=== PATIENT | female | born 1990 | race Native Hawaiian/Other Pacific Islander ===

== ENCOUNTER 2022-09-14 16:04 | Outpatient (CLI) | payer MEDICAID, SELFPAY ==
--- NOTE | ~2022-09-14 | US_ITS ---
EXAMINATION: US OB <= 14 weeks fetus DATE: 09/14/2022 16:43 INDICATION: of uncertain dates TECHNIQUE: Real-time pelvic transabdominal and transvaginal ultrasound was performed. COMPARISON: None. FINDINGS: The uterus measures 11.1 x 6.8 x 7.7 cm. There is an intrauterine gestational sac. A yolk s ac is identified. heart motion is identified measuring 178 beats per minute (bpm) by M-mode Dop pler. The crown rump length measures 2.3 cm, which correlates with an estimated gestational age of 9 weeks and 0 day(s) (+/-) 4 day(s). The right ovary is not visualized however no right adnexal abnormality is seen. The left ovary measur es 4.7 x 2.6 x 2.8 cm. There is normal vascular flow in the left ovary. There is no free fluid in the pelvis. IMPRESSION: 1. Live intrauterine with an estimated gestational age of 9 weeks and 0 day(s) (+/-) 4 day( s) and an estimated delivery date of 04/19/2023. Reviewed, dictated and finalized at location B. IMPRESSION: 1. Live intrauterine with an estimated gestational age of 9 weeks and 0 day(s) (+/-) 4 day(s) and an estimated delivery date of 04/19/2023.
== END 2022-09-14 16:05 | disposition home or self-care (01) ==
PROVIDERS: PCP Emergency Medicine; Visit Provider Obstetrics & Gynecology Gynecology
DX: Z36.87 Encounter for antenatal screening for uncertain dates (principal); Z3A.09 9 weeks gestation of pregnancy
CPT/HCPCS: 76801

== ENCOUNTER 2022-11-19 15:30 | Outpatient (CLI) | payer OTHER, SELFPAY ==
--- NOTE | ~2022-11-19 | US_ITS ---
EXAMINATION: US OB /maternal detail DATE: 11/19/2022 16:26 INDICATION: anatomic survey. TECHNIQUE: Real-time ultrasound of the pelvis was performed. COMPARISON: Ultrasound 09/14/2022 FINDINGS: There is a single living fetus in vertex presentation. The placenta is anterior. heart rate is 148 beats per minute (bpm). The amniotic fluid volume is subjectively normal. The following biometric data were obtained: Biparietal diameter (BPD): 4.3 cm; head circumference (HC): 16.2 cm; abdominal circumference (AC): 14 .3 cm; femur length (FL): 3.1 cm. These measurements are concordant. Estimated weight is 295 g +/- 44 g, which correlates with the 92nd percentile when 04/18/23 is us ed as estimated date of delivery. As single measurements, these parameters are each equal to the following estimated gestational ages: BPD: 19 weeks 0 days. HC: 19 weeks 0 days. AC: 19 weeks 4 days. FL: 19 weeks 4 days. estimated gestational age based solely on measurements from this exam is 19 weeks 2 days +/- 1 weeks 2 days. The cerebral ventricles, cerebellum, cisterna magna, nuchal fold, and visualized portions of the spin e are normal. The heart, bladder, and umbilical cord vessel number are not well visualized. The diaph ragm, stomach, and kidneys are normal. The cord insertion is normal. IMPRESSION: 1. Single living fetus in vertex presentation. 2. Large for gestational age. Estimated weight is 295 g +/- 44 g, which correlates with the 92 nd percentile when 04/18/23 is used as estimated date of delivery. Note that estimated date of delivery based on the first ultrasound on 09/14/2022 would be 04/19/2023. 3. heart, bladder, and umbilical cord vessel number not well visualized. Reviewed, dictated and finalized at location A. IMPRESSION: 1. Single living fetus in vertex presentation. 2. Large for gestational age. Estimated weight is 295 g +/- 44 g, which correlates with the 92nd percentile when 04/18/23 is used as estimated date of de livery. Note that estimated date of delivery based on the first ultrasound on would be 04/19/2023. 3. heart, bladder, and umbilical cord vessel number not well visualized.
== END 2022-11-19 15:31 | disposition home or self-care (01) ==
PROVIDERS: PCP Emergency Medicine; Visit Provider Advanced Practice Midwife
DX: Z36.9 Encounter for antenatal screening, unspecified (principal); Z3A.19 19 weeks gestation of pregnancy
CPT/HCPCS: 76805

== ENCOUNTER 2023-04-08 13:55 | Outpatient (RCR) | payer OTHER, SELFPAY ==
[2023-04-08 14:30] VITALS: BP 125/81; PULSE 92
== END 2023-07-07 23:59 | disposition home or self-care (01) ==
LOC: ANHOBOP 13:55
PROVIDERS: Visit Provider Obstetrics & Gynecology Gynecology
DX: O24.419 Gestational diabetes mellitus in pregnancy, unspecified control (principal); Z3A.38 38 weeks gestation of pregnancy
CPT/HCPCS: 59025

== ENCOUNTER 2023-04-10 15:46 | Inpatient (IN) | payer OTHER, SELFPAY ==
[2023-04-10] VITALS (12 sets, daily range): BP systolic 115–133; BP diastolic 62–90; PULSE 84–105; TEMP 36.3–37.1; BMI 33.0
[2023-04-10 16:26] LABS: Basophils Percent Auto 0.3 % (0.2-1.2); Eosinophils Absolute Auto 0.1 K/mm3 (0-0.3); Eosinophils Percent Auto 0.6 % (0-4.4); Hematocrit 34.6 % (37.0-47.0); Immature Granulocyte Absolute 0.05 K/mm3 (0.00-0.031); Immature Granulocyte Percent A 0.5 % (0-0.5); Lymphocytes Absolute Auto 2.27 K/mm3 (0.9-3.2); Mean Corpuscular HGB Conc 31.8 g/dl (32-36); Mean Corpuscular Hemoglobin 28.2 pg (26-34); Mean Corpuscular Volume 88.7 fl (80-100); Mean Platelet Volume 11.4 fl (7.4-10.4); Monocytes Absolute Auto 0.5 K/mm3 (0.1-0.6); Monocytes Percent Auto 5.1 % (2.6-8.5); Neutrophils Absolute Auto 7.4 K/mm3 (1.3-6.7); Neutrophils Percent Auto 71.5 % (45.5-73.1); Platelet Count Result 201 k/mm3 (150-375); Red Cell Distribution Width 14.2 % (11.5-14.5); White Blood Count 10.3 K/mm3 (4.5-10.0)
[2023-04-10] MEDS: miSOPROStol 25 MCG TABLET BY MOUTH (16:46)
[2023-04-10 16:52] LABS: Glucose Point of Care 78 mg/dl (65-105)
[2023-04-10] MEDS: INSULIN ASPART (*BKC) 100 UNITS/ML 10 UNITS SUB-Q (17:34)
[2023-04-10 18:54] LABS: Glucose Point of Care 111 mg/dl (65-105)
[2023-04-10] MEDS: INSULIN HUMAN NPH (*BKC) 100 UNITS/ML 66 UNITS SUB-Q (21:10)
[2023-04-10] MEDS: LACTATED RINGERS 1,000 ML 125 ML IV CONT (21:14)
[2023-04-10 21:16] LABS: Glucose Point of Care 89 mg/dl (65-105)
[2023-04-10] MEDS: miSOPROStol 25 MCG TABLET 50 MCG BY MOUTH (21:16)
[2023-04-11] VITALS (130 sets, daily range): BP systolic 94–146; BP diastolic 53–97; PULSE 73–127; RESP 18; TEMP 36.1–37.2; O2SAT 97–100
[2023-04-11] MEDS: miSOPROStol 25 MCG TABLET 50 MCG BY MOUTH (01:52)
[2023-04-11] MEDS: LACTATED RINGERS 1,000 ML 125 ML IV CONT ×3 (01:53→09:57)
[2023-04-11 02:07] LABS: Glucose Point of Care 73 mg/dl (65-105)
[2023-04-11 02:07] LABS: Glucose Point of Care 62 mg/dl (65-105)
[2023-04-11 05:49] LABS: Glucose Point of Care 96 mg/dl (65-105)
[2023-04-11] MEDS: OXYTOCIN 30 UNITS/NS 500 ML 30 UNITS/500 ML BAG 6 UNITS IV CONT (06:34)
--- NOTE | 2023-04-11 06:50 | WPDANESEPP ---
Anes - Eval Pre Procedure Procedure: labor epidural Date/Time: 04/11/23 06:50 Surgeon: tayla Preop Diagnosis: pain during labor Pre Op Diagnosis: IOL Patient Data Age: 32 Gender: F Height: 1.57 m Weight: 82 kg Last Vital Signs Temp 36.4 C L 04/11/23 04:51 Pulse 80 04/11/23 06:00 BP 137/84 04/11/23 06:00 O2 Del Method Room Air 04/10/23 16:06 Allergies Allergy/AdvReac Type Severity Reaction Status Date / Time Latex, Natural Rubber Allergy Rash Verified 03/20/23 15:39 nickel Allergy Itching Verified 03/20/23 15:39 Penicillins Allergy Swelling Verified 03/20/23 15:39 PRESERVATIVES Allergy Unknown Itching Uncoded 03/20/23 15:39 Home Medications Medication Instructions Recorded Confirmed Type aspirin 81 mg capsule 81 mg PO DAILY 03/20/23 04/10/23 History ergocalciferol (vitamin D2) 1,250 1,250 mcg PO WEEKLY 03/20/23 03/20/23 History mcg (50,000 unit) capsule (Vitamin D2) insulin NPH isoph U-100 human 100 66 unit subcut HS 03/20/23 03/20/23 History unit/mL subcutaneous cartridge insulin lispro 100 unit/mL 10 unit subcut QACDINNER 03/20/23 04/10/23 History subcutaneous pen vits no.126-ferrous fum 1 tablet PO DAILY 03/20/23 04/10/23 History 28 mg iron-folic acid 800 mcg tablet (Classic ) insulin lispro 100 unit/mL 6 unit subcut QACLUNCH 04/10/23 04/10/23 History subcutaneous cartridge Laboratory Tests 04/10/23 04/10/23 04/10/23 16:20 16:48 18:46 WBC 10.3 H K/mm3 (4.5-10.0) RBC 3.90 L M/mm3 (4.2-5.4) Hgb 11.0 L g/dL (12.0-15.0) Hct 34.6 L % (37.0-47.0) MCV 88.7 fl (80-100) MCH 28.2 pg (26-34) MCHC 31.8 L g/dl (32-36) RDW 14.2 % (11.5-14.5) Plt Count 201 k/mm3 (150-375) MPV 11.4 H fl (7.4-10.4) Immature Gran % (Auto) 0.5 % (0-0.5) Neut % (Auto) 71.5 % (45.5-73.1) Lymph % (Auto) 22.0 % (18.3-44.2) [place] % (Auto) 5.1 % (2.6-8.5) Eos % (Auto) 0.6 % (0-4.4) Baso % (Auto) 0.3 % (0.2-1.2) Lymph # (Auto) 2.27 K/mm3 (0.9-3.2) [place] # (Auto) 0.5 K/mm3 (0.1-0.6) Eos # (Auto) 0.1 K/mm3 (0-0.3) Baso # (Auto) 0.0 K/mm3 (0.0-0.1) Abs Immat Gran (auto) 0.05 H K/mm3 (0.00-0.031) Absolute Neuts (auto) 7.4 H K/mm3 (1.3-6.7) Absolute Nucleated RBC 0.0 K/mm3 (0.0-0.012) Nucleated RBC % 0.0 % (0.0-0.2) POC Capillary Glucose 78 mg/dl 111 H mg/dl (65-105) (65-105) RPR Pending Blood Type O Positive Antibody Screen Negative 04/10/23 04/11/23 04/11/23 21:09 01:45 02:03 WBC RBC Hgb Hct MCV MCH MCHC RDW Plt Count MPV Immature Gran % (Auto) Neut % (Auto) Lymph % (Auto) [place] % (Auto) Eos % (Auto) Baso % (Auto) Lymph # (Auto) [place] # (Auto) Eos # (Auto) Baso # (Auto) Abs Immat Gran (auto) Absolute Neuts (auto) Absolute Nucleated RBC Nucleated RBC % POC Capillary Glucose 89 mg/dl 62 L mg/dl 73 mg/dl (65-105) (65-105) (65-105) RPR Blood Type Antibody Screen 04/11/23 05:42 WBC RBC Hgb Hct MCV MCH MCHC RDW Plt Count MPV Immature Gran % (Auto) Neut % (Auto) Lymph % (Auto) [place] % (Auto) Eos % (Auto) Baso % (Auto) Lymph # (Auto) [place] # (Auto) Eos # (Auto) Baso # (Auto) Abs Immat Gran (auto) Absolute Neuts (auto) Absolute Nucleated RBC Nucleated RBC
--- NOTE | 2023-04-11 08:48 | WPDOBADMIT ---
Obstetrics - Admit Note Admission Note: record reviewed. No pertinent additions to the history and/or any subsequent changes in the physical findings that are not consistent with the expected course of the were found. Additions to the history and/or subsequent changes in the physical findings follow. Here at 39 weeks for medical induction of labor secondary to gestational diabetes insulin requiring. cervix is 3/50/-2 AROM with clear fluid. Patient getting uncomfortable with her contractions. Patient plans epidural. heart tones are reactive. She has had some random decelerations but nothing repetitive.
[2023-04-11 09:11] LABS: Glucose Point of Care 77 mg/dl (65-105)
[2023-04-11 13:27] LABS: Glucose Point of Care 73 mg/dl (65-105)
[2023-04-11 14:18] LABS: Rapid Plasma Reagin Non-Reactive (NonReactive)
--- NOTE | 2023-04-11 15:02 | PM.OBPRVD ---
OB - Vaginal Delivery Note Procedure Delivery date: 04/11/23 Events: Gestational Diabetes (GDMA2) Induction method: AROM, Per Misoprostol Protocol and Per Pitocin Protocol Delivery monitor: External FHT and External Uterine Route of delivery: Episiotomy description: None Laceration Description: Perineal - 2nd Degree and Labial (superficial B outer labia) Delivery repair: vicryl (3-0) Specimen: No Quantitative Blood Loss (ml): 125 Anesthesia type: Epidural Disposition: Floor Complications: No immediate complications Baby Date of : 04/11/23 Weeks of gestation at delivery: 39 gender: Female Weight (pounds): 6 Weight (ounces): 12 presentation: vertex position: Right Occiput Anterior Placenta delivery description: Spontaneous Cord Vessel Description: 3 Vessels and Delayed Cord Clamping score one minute: 9 score five minutes: 9
[2023-04-11] MEDS: OXYTOCIN 30 UNITS/NS 500 ML 30 UNITS/500 ML BAG 125 UNITS IV CONT (15:30)
[2023-04-11] MEDS: BENZOCAINE 20% AER SPR (*SP) 56 GM CAN 1 SPRAY TOPICAL (18:02)
[2023-04-11] MEDS: WITCH HAZEL 40 PADS 1 PAD TOPICAL (18:02)
[2023-04-11] MEDS: DOCUSATE SODIUM 100 MG CAPSULE PO (18:02)
[2023-04-11] MEDS: IBUPROFEN 600 MG TABLET PO (20:44)
--- NOTE | 2023-04-11 20:57 | OBPPTRN ---
Patient transferred to post room #292 via wheelchair, baby girl in crib at moms side. Support person present. Oriented to unit, room, information board, rooming in, admission packet and security measures. Patient verbalizes understanding.
[2023-04-12 05:21] VITALS: BP 120/68; PULSE 102; RESP 18; TEMP 36.4; O2SAT 100
[2023-04-12 05:31] LABS: Hematocrit 35.3 % (37.0-47.0); Hemoglobin 10.1 g/dL (12.0-15.0)
[2023-04-12 07:30] VITALS: BP 122/82; PULSE 103; RESP 16; TEMP 37.2; O2SAT 99
[2023-04-12 08:00] VITALS: PULSE 103; RESP 16; O2SAT 99
[2023-04-12] MEDS: MULTIVIT/MIN/PREN/FOL AC/IRON TABLET 1 TAB PO (09:38)
[2023-04-12] MEDS: IBUPROFEN 600 MG TABLET PO ×2 (09:39→20:05)
[2023-04-12] MEDS: DOCUSATE SODIUM 100 MG CAPSULE PO (09:39)
--- NOTE | 2023-04-12 10:45 | P.PNOB_ITS ---
OB - PN: Subj Subjective Date/time seen: 04/12/23 10:45 Patient comments: no complaints and pain well controlled baby status: doing well OB - PN: Obj Data Labs 04/12/23 04:51 Labs: Laboratory Results - last 24 hr 04/10/23 04/11/23 04/12/23 16:20 13:25 04:51 Hgb 10.1 L Hct 35.3 L POC Capillary Glucose 73 RPR Non-reactive OB - PN A/P Plan day: 1 Plan: routine care Time Spent With Patient Time: Total time spent is greater than 50% in coordination of care (as documented) at patient's floor/unit and/or counseling patient: Exam 2 : Bimanual exam- vagina & uterus: other (Uterus firm, nt @U)
[2023-04-12 12:23] VITALS: BP 124/79; PULSE 119; RESP 16; TEMP 37.1; O2SAT 98
--- NOTE | 2023-04-12 13:23 | WPDANLDPN2 ---
Anes-Prog Note L&D Date/Time: 04/12/23 13:23 Comfortable throughout: labor and delivery Neuraxial method: epidural Epidural/Spinal procedure site: clean & non-tender Neuro status: Neuro function grossly intact. Cardiovascular status: normal Respiratory status: normal Airway patency: baseline Mental status: baseline Post-Op hydration status: normal Vital Signs: Last Vital Signs Temp 98.8 F 04/12/23 12:23 Pulse 119 H 04/12/23 12:23 Resp 16 04/12/23 12:23 BP 124/79 04/12/23 12:23 Pulse Ox 98 04/12/23 12:23 O2 Del Method Room Air 04/12/23 08:00 Pain score (VAS): 0/10 I/O: Intake & Output 04/11/23 04/12/23 04/12/23 23:59 07:59 15:59 Output Total 300 Balance -300 Post-procedural complaints: none Patient feedback: Patient satisfied with anesthetic care.
--- NOTE | 2023-04-12 15:21 | PC.NURSE ---
[phone] Introductions were made to father of the baby and we reviewed the feeding history. has last had a bottle at 0845. Resources provided for inpatient and outpatient services with the feeding sheet, mom/baby guide and name written on the communication board. Father of baby was encouraged to call for assistance around 1100 to practice waking to breastfeed. Father voiced understanding of information and will call if there is a request for assistance. Reported to the Primary RN. [phone] RN was requested to the room for assistance. Introductions were made to mother, then consulted with patient to assess needs related to . Mother led the conversation with her?plans to feed?her , concerns about around family that is coming up to visit, the?experience so far of bottle feeding and pumping without practicing . RN encouraged understanding of the benefits of skin to skin (demonstrating unwrapping and placing upright on her chest), stimulating with massage touch, changing positions to encourage wakefulness, how to watch for early feeding cues, responsive feeding, feeding on demand (aiming for 8-12 times in 24 hours, about every 2-3 hours), milk production, building/maintaining a milk supply, duration of feeding, signs of adequate intake/output and how to record on the feeding sheet. Mother works well with her with encouragement and education, although tense, she is willing to learn. Reviewed positioning and ear, shoulder, hip alignment, supporting the breast to facilitate a deep latch, asymmetrical latch (off-center), leading with the chin with a big, open, wide gape and body close to mother. latched to the left, then right breast in football position. On the left breast infant sucks, stops and holds breast in the mouth. We attempted this practice for about 10 minutes, and infant would latch, suck, stop, and hold. Infant repeated the same response on the the right breast, however; one latch resulted in 3 simultaneous sucks with possibly 1 swallow, then infant stopped and held the nipple in her mouth. Education given to the mother of how to visualize the suckling (with good rocking jaw motion), swallows (dropping of the lower jaw) and how to listen for drinking at the breast (the ka sound). Patient's sister-in -law Nadja is present through some of this consult. She is very supportive as she has breastfed two of her children for over 1 year. Encouraged parents to use paced bottle feeding and pump consistently if infant is not latching of maintaining latch. Reviewed comfort measures of healing with a warm, wet washcloth to rinse breast, then leave open to air-dry, good handwashing when or touching the breast/nipples to prevent infection. Mother voiced understanding of skin to skin, stimulating with massage touch, responsive feedings, hand expressed colostrum (none expressed), talking to to encourage if it has been 2 -2.5 hours since the start of the last , to call if does not latch, or if there is discomfort with . Resources used for education were facilitated with the visual educational handouts, tool, mom and baby guide and reinforcement needed. Inpatient/outpatient resources provided with feeding sheet, name written on the communication board, and the mom/baby guide. Parents voiced understanding of information, calling for assistance with , waking infant or other concerns. Reported to the Primary RN.
[2023-04-12 20:05] VITALS: BP 140/85; PULSE 117; RESP 18; TEMP 36.8; O2SAT 97
[2023-04-12] MEDS: ACETAMINOPHEN 325 MG TABLET 650 MG PO (20:05)
[2023-04-12] MEDS: SIMETHICONE 80 MG TAB.CHEW PO (20:05)
--- NOTE | 2023-04-13 06:51 | PM.OBDSVD ---
DS: Admitting Diagnosis Discharge Date 04/13/23 <Julieth Gaviria MD - Last Filed: 04/13/23 08:03> Admitting Diagnosis IUP 39 wks GDMA2 <Barbara Saunders MD - Last Filed: 04/18/23 12:05> DS: Discharge Diagnosis Discharge Diagnosis (1) (normal spontaneous vaginal delivery): Code(s): O80 - Encounter for full-term uncomplicated delivery <Barbara Saunders MD - Last Filed: 04/18/23 12:05> Status: Acute <Barbara Saunders MD - Last Filed: 04/18/23 12:05> OB - DS: Summary OB Procedures : NST and Ultrasound <Barbara Saunders MD - Last Filed: 04/18/23 12:05> OB Procedures Intrapartum: Spontaneous Vag Delivery <Barbara Saunders MD - Last Filed: 04/18/23 12:05> OB Procedures: : None <Barbara Saunders MD - Last Filed: 04/18/23 12:05> Peripartum Data Infant Delivery Method: Natural Vaginal <Barbara Saunders MD - Last Filed: 04/18/23 12:05> Laceration Description: Perineal - 2nd Degree and Labial (superficial B outer labia) <Barbara Saunders MD - Last Filed: 04/18/23 12:05> Episiotomy description: None <Barbara Saunders MD - Last Filed: 04/18/23 12:05> complications: none <Barbara Saunders MD - Last Filed: 04/18/23 12:05> 1: Gender: Female <Julieth Gaviria MD - Last Filed: 04/13/23 08:03> Disposition of : home <Julieth Gaviria MD - Last Filed: 04/13/23 08:03> Status at Discharge Functional status at discharge: independent ambulation <Barbara Saunders MD - Last Filed: 04/18/23 12:05> Overall status at discharge: patient is progressing back to baseline <Barbara Saunders MD - Last Filed: 04/18/23 12:05> Time Spent with Patient Time attestation: Total time spent providing and/or coordinating discharge services: <Barbara Saunders MD - Last Filed: 04/18/23 12:05> Exam Const: General: cooperative, healthy appearing, comfortable and no acute distress <Julieth Gaviria MD - Last Filed: 04/13/23 08:03> Orientation/consciousness: patient oriented x3 <Julieth Gaviria MD - Last Filed: 04/13/23 08:03> Resp: Effort & Inspection: normal respiratory effort <Julieth Gaviria MD - Last Filed: 04/13/23 08:03> Auscultation: clear to auscultation bilaterally <Julieth Gaviria MD - Last Filed: 04/13/23 08:03> Cardio: Rate: regular rate <Julieth Gaviria MD - Last Filed: 04/13/23 08:03> GI: Inspection: non-distended <Julieth Gaviria MD - Last Filed: 04/13/23 08:03> GI Palp: No abdominal tenderness and Yes Soft to palpation <Julieth Gaviria MD - Last Filed: 04/13/23 08:03> Auscultation: normal bowel sounds <Julieth Gaviria MD - Last Filed: 04/13/23 08:03> : Other: fundus firm <Julieth Gaviria MD - Last Filed: 04/13/23 08:03> Skin: General skin exam: normal color <Julieth Gaviira MD - Last Filed: 04/13/23 08:03> Neuro: General: patient oriented x3 <Julieth Gaviria MD - Last Filed: 04/13/23 08:03> Extrem: General: normal to inspection <Julieth Gaviria MD - Last Filed: 04/13/23 08:03> Psych: Appearance: grossly normal <Julieth Gaviria MD - Last Filed: 04/13/23 08:03> Affect: normal affect <Julieth Gaviria MD - Last Filed: 04/13/23 08:03> Attitude: cooperative <Julieth Gaviria MD - Last Filed: 04/13/23 08:03> DS: Data Data Completed and Pending Labs on day of discharge: Labs from last 24 hours 04/11/23 04/11/23 04/11/23 13:25 09:04 05:42 WBC RBC Hgb Hct MCV MCH MCHC RDW Plt Count MPV Immature Gran % (Auto) Neut % (Auto) Lymph % (Auto) [place] % (Auto) Eos % (Auto) Baso % (Auto) Lymph # (Auto) [place] # (Auto) Eos # (Auto) Baso # (Auto) Abs Immat Gran (auto) Absolute Neuts (auto) Absolute Nucleated RBC Nucleated RBC % POC Capillary Glucose 73 77 96 RPR Bl
[2023-04-13] MEDS: MULTIVIT/MIN/PREN/FOL AC/IRON TABLET 1 TAB PO (10:39)
[2023-04-13] MEDS: IBUPROFEN 600 MG TABLET PO (10:39)
[2023-04-13] MEDS: DOCUSATE SODIUM 100 MG CAPSULE PO (10:39)
[2023-04-13] MEDS: SIMETHICONE 80 MG TAB.CHEW PO (10:39)
[2023-04-13 10:40] VITALS: BP 122/80; PULSE 110; RESP 18; TEMP 36.8; O2SAT 97
[2023-04-13] MEDS: MEASLES,MUMPS,RUBELLA VACCINE 0.5 ML VIAL SUB-Q (10:41)
[2023-04-15 10:26] VITALS: BP 125/80; PULSE 100; RESP 18; TEMP 36.7; O2SAT 100
== END 2023-04-13 12:52 | disposition home or self-care (01) | DRG 560 ==
LOC: ANHLDR 04-11 15:06 → ANHOB2 04-13 07:43 → ANHLDR 04-16 09:17 → ANHOB2 04-16 09:17
PROVIDERS: Admitting Provider Obstetrics & Gynecology Gynecology; Visit Provider Obstetrics & Gynecology
DX: O24.424 Gestational diabetes mellitus in childbirth, insulin controlled (principal); O70.1 Second degree perineal laceration during delivery; Z3A.39 39 weeks gestation of pregnancy; Z37.0 Single live birth
CPT/HCPCS: 36415; 82948; 85014; 85018; 85025; 86592; 86850; 86900; 86901; 90710; A9270; J1815; J2590; J2795; J7120

== ENCOUNTER 2023-05-02 10:20 | Day surgery (SDC) | payer OTHER, SELFPAY ==
[2023-05-02] VITALS (40 sets, daily range): BP systolic 104–133; BP diastolic 56–95; PULSE 96–138; RESP 11–32; TEMP 36.3–37.7; O2SAT 96–100
--- NOTE | ~2023-05-02 | CT_ITS ---
EXAMINATION: CT abdomen pelvis w con DATE: 05/02/2023 14:07 INDICATION: Low abdominal pain and cramping. 3 weeks . TECHNIQUE: Computed tomography (CT) of the abdomen and pelvis was performed with 100 mL Omnipaque 350 intravenous contrast. Automated exposure control and iterative reconstruction technique were employe d. The dose-length product was 480.34 mGy-cm. COMPARISON: CT abdomen and pelvis 01/28/2011 FINDINGS: The visualized portions of the lung bases are clear without pneumonia or pleural effusion. The heart size is normal. No pericardial effusion. The liver, spleen, gallbladder, pancreas, adrenal glands, and kidneys are normal. There is an appendicolith in the appendix which is dilated to 13 mm a nd fluid-filled with surrounding fat stranding, consistent with appendicitis. There are no pathologic ally enlarged lymph nodes. There is physiologic fluid in the pelvis. The endometrial complex measures 7 mm in thickness, which is normal. There is mild lumbar spondylosis. IMPRESSION: 1. Acute appendicitis. Reviewed, dictated and finalized at location E. ERING MACHINE OPERATOR IMPRESSION: 1. Acute appendicitis.
[2023-05-02 13:19] LABS: Basophils Percent Auto 0.1 % (0.2-1.2); Eosinophils Percent Auto 0.2 % (0-4.4); Hematocrit 39.5 % (37.0-47.0); Hemoglobin 12.3 g/dL (12.0-15.0); Immature Granulocyte Absolute 0.04 K/mm3 (0.00-0.031); Immature Granulocyte Percent A 0.3 % (0-0.5); Lymphocytes Absolute Auto 1.27 K/mm3 (0.9-3.2); Lymphocytes Percent Auto 10.6 % (18.3-44.2); Mean Corpuscular HGB Conc 31.1 g/dl (32-36); Mean Corpuscular Hemoglobin 27.8 pg (26-34); Mean Corpuscular Volume 89.2 fl (80-100); Mean Platelet Volume 10.6 fl (7.4-10.4); Monocytes Absolute Auto 0.5 K/mm3 (0.1-0.6); Monocytes Percent Auto 4.5 % (2.6-8.5); Neutrophils Absolute Auto 10.1 K/mm3 (1.3-6.7); Neutrophils Percent Auto 84.3 % (45.5-73.1); Platelet Count Result 239 k/mm3 (150-375); Red Blood Count 4.43 M/mm3 (4.2-5.4); Red Cell Distribution Width 14.1 % (11.5-14.5)
--- NOTE | 2023-05-02 13:24 | ED.ABDPAIN ---
HPI - Abdominal Pain General Chief Complaint: Abdominal Pain Stated Complaint: lower abd cramping, 3 weeks PP, COVID+ today Time Seen by Provider: 05/02/23 12:05 History of Present Illness HPI narrative: patient is a 32-year-old female at approximately 3 weeks presenting with abdominal pain. Patient states that for the last 2 days she has had severe lower abdominal cramping that has not resolved. She has been alternating Tylenol and ibuprofen without relief. No vaginal bleeding. No nausea or vomiting. States she still having normal bowel movements. She called her OB Gyne today who advised that she come in for evaluation. Patient states that she has had some nasal congestion and tested positive for COVID-19 this morning. No shortness of breath or chest pain. No leg swelling. States that she has had a low-grade fever. Related Data Home Medications Medication Instructions Recorded Confirmed ergocalciferol (vitamin D2) 1,250 1,250 mcg PO WEEKLY 03/20/23 03/20/23 mcg (50,000 unit) capsule (Vitamin D2) vits no.126-ferrous fum 1 tablet PO DAILY 03/20/23 04/10/23 28 mg iron-folic acid 800 mcg tablet (Classic ) Allergies Allergy/AdvReac Type Severity Reaction Status Date / Time Latex, Natural Rubber Allergy Rash Verified 05/02/23 10:24 nickel Allergy Itching Verified 05/02/23 10:24 Penicillins Allergy Swelling Verified 05/02/23 10:24 PRESERVATIVES Allergy Unknown Itching Uncoded 05/02/23 10:24 Review of Systems Review of Systems: All systems reviewed & are unremarkable except as noted in HPI and below PMFSH Surgical History Surgical History No pertinent past surgical history Family History Family History Other No problems noted. Mother Diabetes mellitus Hypertension Father Hypertension Other Cancer Social History Social History Smoking status: Never smoker Second hand tobacco smoke exposure: No Substance use: never Do You Feel Safe in your Home?: Yes Lack of Transportation: No Lack of Food: Never True Current Housing: I Have Housing Concerned About Future Housing: No Difficulty Paying Gas/Electric Bills: No Difficulty Paying for Meds: No Currently Unemployed: No Education: High School Diploma/GED Difficulty w/ Childcare or Family Care: No Spiritual care concerns: No Exam Narrative: GENERAL: Well-appearing, In no acute distress, pleasant cooperative HEAD: Normocephalic, atraumatic. EYES: PERRLA and EOMI. ENT: + nasal congestion NECK: Supple. CHEST: Clear to auscultation. No respiratory distress. HEART: tachycardic, regular rhythm ABDOMEN: Soft, tender in the lower abdomen, most severe in the right lower quadrant, no guarding or rebound EXTREMITIES: No edema. SKIN: Warm, dry, no rash. NEURO: No focal deficits. Alert and oriented x3. PSYCH: Normal mood and affect. Course Vital Signs Vital signs: Vital Signs Temperature 99.8 F H 05/02/23 10:24 Pulse Rate 127 H 05/02/23 10:24 Respiratory Rate 16 05/02/23 10:24 Blood Pressure 133/78 05/02/23 10:24 Pulse Oximetry 99 05/02/23 10:24 Oxygen Delivery Room Air 05/02/23 10:24 Temperature 97.4 F L 05/02/23 18:53 Pulse Rate 96 05/02/23 19:45 Respiratory Rate 16 05/02/23 19:45 Blood Pressure 126/75 05/02/23 19:45 Pulse Oximetry 96 05/02/23 19:45 Oxygen Delivery Room Air 05/02/23 19:45 Oxygen Flow Rate 8 05/02/23 18:53 MDM - Abdominal Pain MDM Narrative Medical decision making narrative: 32-year-old female presenting with abdominal pain and cramping 3 weeks . Patient is tachycardic in the 120s. Otherwise vitals are within normal limits. Blood work with mild leukocytosis. CT abdomen pelvis is concerning for acute appendiciti
[2023-05-02 13:30] LABS: Alanine Aminotransferase 51 U/L (6-35); Albumin Level 4.5 g/dL (3.5-5.1); Alkaline Phosphatase 90 U/L (38-126); Anion Gap 10 mmol/L (8-16); Aspartate Amino Transferase 41 U/L (14-36); Bilirubin,Total 0.4 mg/dL (0.2-1.3); Blood Urea Nitrogen 7 mg/dL (7-17); Carbon Dioxide 25 mmol/L (22-30); Chloride 102 mmol/L (98-107); Estimated CRCL calculation 113 ml/min; Estimated Glomerular Filt Rate > 60; Glucose 98 mg/dL (65-110); Lipase 58 U/L (23-300); Potassium 4.1 mmol/L (3.4-5.0); Sodium 137 mmol/L (137-145)
[2023-05-02] MEDS: SODIUM CHLORIDE 0.9% IV 1,000 ML 999 ML IV CONT (13:35)
[2023-05-02 13:42] LABS: Appearance Urine Cloudy (Clear); Bacteria Urine Rare /hpf; Bilirubin Urine Negative (Negative); Blood Urine 1+ (Negative); Color Urine Yellow (Yellow); Glucose Urine UA Negative (Negative); Ketones Urine Negative (Negative); Leukocyte Esterase Ur 3+ LEU/UL (Negative); Nitrate Urine Negative (Negative); Non Pathogenic Casts 0-2; Protein Urine Negative (Negative); RBC Urine 0-2 /hpf (0-2); Specific Grav Ur 1.018 (1.001-1.035); Squamous Epithelial Cell Urine Occasional /hpf (Few); Urobilinogen Urine 0.2 mg/dL (<2.0); WBC Urine 51-100 /hpf
[2023-05-02 13:52] LABS: Add Urine Microscopic? YES
[2023-05-02] MEDS: cefTRIAXone 2 GM/NS 100 ML 2 GM/100 ML BAG IVPB (15:04)
[2023-05-02] MEDS: metroNIDAZOLE 500 MG/ISO 100ML 500 MG/100 ML BAG 100 MG IVPB (15:39)
[2023-05-02] MEDS: MORPHINE SULFATE (*CRX) 2 MG/ML INJ IV PUSH (15:55)
--- NOTE | 2023-05-02 16:10 | PM.IMHP ---
H&P: HPI History of Present Illness Date/Time: 05/02/23 16:10 Chief Complaint: Right lower quadrant abdominal pain Narrative: This is a 32-year-old woman who is 3 weeks from a vaginal delivery, who presented to the ER with complaints of right lower quadrant abdominal pain. She started with cough, congestion, fever, and sore throat 2 days ago. She tested positive for COVID. She then developed lower abdominal pain yesterday afternoon and describes it as cramping in nature. Initially, she thought this was related to COVID. Today, her pain progressively worsened and began radiating into her mid upper abdomen. She decided to present to the ER for further evaluation. In the ER, she is tachycardic with a heart rate 120-130s. Blood pressure is stable. She is mildly tachypneic but oxygen saturation is normal on room air. [place] [address]. Urinalysis showed 1+ blood, 3+ leukocytes, 51-[address] scan of the abdomen and pelvis showed an appendicolith in the dilated fluid-filled appendix measuring up to 13 mm with surrounding fat stranding, consistent with acute appendicitis. Our service was consulted by the ED physician for surgical evaluation of acute appendicitis. She denies any previous abdominal surgeries. She denies any complications during or following her delivery. She did have gestational diabetes but no other complications during . Review of Systems Review of Systems: All systems reviewed & are unremarkable except as noted in HPI and below PMFSH Past Medical History Medical History (Updated 05/02/23 @ 16:19 by HERNANDEZ Simental) Gestational diabetes IUP (intrauterine ), incidental Surgical History Surgical History No pertinent past surgical history Family History Family History Other No problems noted. Mother Diabetes mellitus Hypertension Father Hypertension Other Cancer Social History Social History Smoking status: Never smoker Second hand tobacco smoke exposure: No Substance use: never Do You Feel Safe in your Home?: Yes Lack of Transportation: No Lack of Food: Never True Current Housing: I Have Housing Concerned About Future Housing: No Difficulty Paying Gas/Electric Bills: No Difficulty Paying for Meds: No Currently Unemployed: No Education: High School Diploma/GED Difficulty w/ Childcare or Family Care: No Spiritual care concerns: No Meds Home Medications and Allergies Home Medications Medication Instructions Recorded Confirmed Type ergocalciferol (vitamin D2) 1,250 1,250 mcg PO WEEKLY 03/20/23 03/20/23 History mcg (50,000 unit) capsule (Vitamin D2) vits no.126-ferrous fum 1 tablet PO DAILY 03/20/23 04/10/23 History 28 mg iron-folic acid 800 mcg tablet (Classic ) drospirenone (contraceptive) 4 mg 4 mg PO DAILY 24 days #24 tabs 04/12/23 Rx (28) tablet (Slynd) acetaminophen 325 mg tablet 650 mg PO Q6H PRN Mild Pain (1-3) 04/13/23 Rx Or Headache #60 tabs docusate sodium 100 mg capsule 100 mg PO BID PRN Constipation #60 04/13/23 Rx caps ibuprofen 600 mg tablet 600 mg PO Q6H PRN Cramping #40 tabs 04/13/23 Rx Allergies Allergy/AdvReac Type Severity Reaction Status Date / Time Latex, Natural Rubber Allergy Rash Verified 05/02/23 10:24 nickel Allergy Itching Verified 05/02/23 10:24 Penicillins Allergy Swelling Verified 05/02/23 10:24 PRESERVATIVES Allergy Unknown Itching Uncoded 05/02/23 10:24 Vital Signs Vital Signs - 24 hr 05/02/23 10:24 05/02/23 11:39 05/02/23 11:36 Temperature 99.8 F H Pulse Rate 127 H 128 H Respiratory Rate 16 13 Blood Pressure 133/78 125/79 Pulse Oximetry 99 100 100 Oxygen Delivery Room Air Room Air 05/02/23 12:02 05/02/23 12:26 0
--- NOTE | 2023-05-02 17:26 | PC.NURSE ---
Phone report given to SONYA Blair at this time. All questions answered, aware of consent needs to be signed.
--- NOTE | 2023-05-02 17:39 | WPDHPUPDATE1 ---
History and Physical Update Update Date/Time: 05/02/23 17:39 History and Physical has been reviewed, including an updated exam of the patient. There are NO changes in the patient's condition. Risks, benefits, and alternatives have been discussed and questions answered. Patient agrees to proceed with procedure.
--- NOTE | 2023-05-02 17:42 | WPDANESEPPF ---
Anes - Initial Pre Proc Eval Procedure: Operation Date: 05/02/23 17:00 Proposed Procedures p Laparoscopic Appendectomy - Franc Berumen MD Date/Time: 05/02/23 17:42 Pre Op Diagnosis: lower abd cramping, 3 weeks PP, COVID+ today Patient Data Age: 32 Gender: F Height: 1.57 m Weight: 79.5 kg Last Vital Signs Temp 37.7 C H 05/02/23 10:24 Pulse 130 H 05/02/23 17:16 Resp 24 H 05/02/23 17:16 BP 127/72 05/02/23 17:16 Pulse Ox 99 05/02/23 17:16 O2 Del Method Room Air 05/02/23 11:39 Allergies Allergy/AdvReac Type Severity Reaction Status Date / Time Latex, Natural Rubber Allergy Rash Verified 05/02/23 10:24 nickel Allergy Itching Verified 05/02/23 10:24 Penicillins Allergy Swelling Verified 05/02/23 10:24 PRESERVATIVES Allergy Unknown Itching Uncoded 05/02/23 10:24 Home Medications Medication Instructions Recorded Confirmed Type ergocalciferol (vitamin D2) 1,250 1,250 mcg PO WEEKLY 03/20/23 03/20/23 History mcg (50,000 unit) capsule (Vitamin D2) vits no.126-ferrous fum 1 tablet PO DAILY 03/20/23 04/10/23 History 28 mg iron-folic acid 800 mcg tablet (Classic ) drospirenone (contraceptive) 4 mg 4 mg PO DAILY 24 days #24 tabs 04/12/23 Rx (28) tablet (Slynd) acetaminophen 325 mg tablet 650 mg PO Q6H PRN Mild Pain (1-3) 04/13/23 Rx Or Headache #60 tabs docusate sodium 100 mg capsule 100 mg PO BID PRN Constipation #60 04/13/23 Rx caps ibuprofen 600 mg tablet 600 mg PO Q6H PRN Cramping #40 tabs 04/13/23 Rx Laboratory Tests 05/02/23 05/02/23 13:09 13:32 WBC 12.0 H K/mm3 (4.5-10.0) RBC 4.43 M/mm3 (4.2-5.4) Hgb 12.3 g/dL (12.0-15.0) Hct 39.5 % (37.0-47.0) MCV 89.2 fl (80-100) MCH 27.8 pg (26-34) MCHC 31.1 L g/dl (32-36) RDW 14.1 % (11.5-14.5) Plt Count 239 k/mm3 (150-375) MPV 10.6 H fl (7.4-10.4) Immature Gran % (Auto) 0.3 % (0-0.5) Neut % (Auto) 84.3 H % (45.5-73.1) Lymph % (Auto) 10.6 L % (18.3-44.2) [place] % (Auto) 4.5 % (2.6-8.5) Eos % (Auto) 0.2 % (0-4.4) Baso % (Auto) 0.1 L % (0.2-1.2) Lymph # (Auto) 1.27 K/mm3 (0.9-3.2) [place] # (Auto) 0.5 K/mm3 (0.1-0.6) Eos # (Auto) 0.0 K/mm3 (0-0.3) Baso # (Auto) 0.0 K/mm3 (0.0-0.1) Abs Immat Gran (auto) 0.04 H K/mm3 (0.00-0.031) Absolute Neuts (auto) 10.1 H K/mm3 (1.3-6.7) Absolute Nucleated RBC 0.0 K/mm3 (0.0-0.012) Nucleated RBC % 0.0 % (0.0-0.2) Sodium 137 mmol/L (137-145) Potassium 4.1 mmol/L (3.4-5.0) Chloride 102 mmol/L (98-107) Carbon Dioxide 25 mmol/L (22-30) Anion Gap 10 mmol/L (8-16) BUN 7 mg/dL (7-17) Creatinine 0.60 L mg/dL (0.7-1.0) Estim Creat Clear Calc 113 ml/min Estimated GFR > 60 (59 - ) Glucose 98 mg/dL (65-110) Calcium 9.0 mg/dL (8.4-10.2) Total Bilirubin 0.4 mg/dL (0.2-1.3) AST 41 H U/L (14-36) ALT 51 H U/L (6-35) Alkaline Phosphatase 90 U/L (38-126) Total Protein 9.0 H g/dL (6.3-8.2) Albumin 4.5 g/dL (3.5-5.1) Lipase 58 U/L (23-300) Urine Color Yellow (Yellow) Urine Appearance Cloudy H (Clear) Urine pH 7.0 (5.0-9.0) Ur Specific [place] 1.018 (1.001-1.035) Urine Protein Negative mg/dL (Negative) Urine Glucose (UA) Negative mg/dL (Negative) Urine Ketones Negative mg/dL (Negative) Ur Blood (Man) 1+ H (Negative) Urine Nitrate Negative (Negative) Urine Bilirubin Negative (Negative) Urine Urobilinogen 0.2 mg/dL (<2.0) Leukocyte Esterase Rfl 3+ H RONEN/UL (Negative) Urine RBC 0-2 /hpf (0-2) Urine WBC 51-100 H /hpf Ur Squamous Epith Cells Occasional /hpf (Few) Urine Bacteria
[2023-05-02] MEDS: BUPIVACAINE/EPINEPHRINE 0.5% 30 ML VIAL INFILTRATE (17:48)
--- NOTE | 2023-05-02 18:01 | PM.DS ---
DS: Admitting Diagnosis Discharge Date 05/02/23 Admitting Diagnosis Appendicitis COVID-19 3 weeks DS: Discharge Diagnosis Discharge Diagnosis (1) Acute appendicitis with localized peritonitis, without perforation or abscess: Qualifiers: Appendicitis gangrene presence: unspecified whether gangrene present Qualified Code(s): K35.30 - Acute appendicitis with localized peritonitis, without perforation or gangrene Code(s): K35.30 - Acute appendicitis with localized peritonitis, without perforation or gangrene Status: Acute (2) COVID: Code(s): U07.1 - COVID-19 Status: Acute DS: Summary Hospital Course Hospital Course: Outpatient surgery Time Spent with Patient Time attestation: Total time spent providing and/or coordinating discharge services: DS: Data Data Completed and Pending Labs on day of discharge: Labs from last 24 hours 05/02/23 05/02/23 13:32 13:09 WBC 12.0 H RBC 4.43 Hgb 12.3 Hct 39.5 MCV 89.2 MCH 27.8 MCHC 31.1 L RDW 14.1 Plt Count 239 MPV 10.6 H Immature Gran % (Auto) 0.3 Neut % (Auto) 84.3 H Lymph % (Auto) 10.6 L [place] % (Auto) 4.5 Eos % (Auto) 0.2 Baso % (Auto) 0.1 L Lymph # (Auto) 1.27 [place] # (Auto) 0.5 Eos # (Auto) 0.0 Baso # (Auto) 0.0 Abs Immat Gran (auto) 0.04 H Absolute Neuts (auto) 10.1 H Absolute Nucleated RBC 0.0 Nucleated RBC % 0.0 Sodium 137 Potassium 4.1 Chloride 102 Carbon Dioxide 25 Anion Gap 10 BUN 7 Creatinine 0.60 L Estim Creat Clear Calc 113 Estimated GFR > 60 Glucose 98 Calcium 9.0 Total Bilirubin 0.4 AST 41 H ALT 51 H Alkaline Phosphatase 90 Total Protein 9.0 H Albumin 4.5 Lipase 58 Urine Color Yellow Urine Appearance Cloudy H Urine pH 7.0 Ur Specific [place] 1.018 Urine Protein Negative Urine Glucose (UA) Negative Urine Ketones Negative Ur Blood (Man) 1+ H Urine Nitrate Negative Urine Bilirubin Negative Urine Urobilinogen 0.2 Leukocyte Esterase Rfl 3+ H Urine RBC 0-2 Urine WBC 51-100 H Ur Squamous Epith Cells Occasional Urine Bacteria Rare Urine Casts 0-2 Discharge Plan Discharge Patient Disposition: Home, Self-Care Discharge Instructions: 1. May shower the day after surgery over incisions. 2. Call office for: -Wound increasingly painful or bleeding -Vomiting -Fever of greater than 101 degrees 3. Expect some blood on dressing and old blood on skin. 4. If no bowel movement for three days, take 1 oz. (30 ml) Milk of Magnesia, if no results, take Fleets enema. 5. No heavy lifting > 15-20 pounds for 2 weeks. 6. No driving for 3 days or while taking narcotic pain medications. 7. Up walking 10-30 minutes three times per day. 8. Resume previous home medications. 9. Follow-up 10-14 days in office for wound check or as previously scheduled. 10. Oral pain medications prescription to be sent home with patient. 11. NUTRITION: Start out by drinking fluids and increase your diet as tolerated. If you experience nausea, try dry toast, crackers, and 7-UP. If nausea or vomiting persists, contact your surgeon?s office. Patient Instructions: Antibiotic Form Stand Alone Forms: General Discharge Instructions Follow-up/Referrals: Franc Berumen MD [Physician] - 3 Weeks UNKNOWN,DOCTOR [Primary Care Provider] - Discharge Medications: New oxycodone-acetaminophen 5-325 mg tablet 0.5 - 1 tablet PO Q6H PRN (Reason: pain) Qty: 10 0RF Continued ergocalciferol (vitamin D2) [Vitamin D2] 1,250 mcg (50,000 unit) Capsule 1,250 mcg PO WEEKLY Classic 28 mg iron- 800 mcg Tablet 1 tablet PO DAILY Slynd 4 mg (28) tablet 4 mg PO DAILY 24 Days Qty: 24 4RF Rx Instructions: start 3 weeks on Saturday acetaminophen 325 mg Tablet 650 mg PO Q6H PRN (Porter
--- NOTE | 2023-05-02 18:49 | P.OP_ITS ---
Procedure Note - Detailed Date of Procedure 05/02/23 Pre-op Diagnosis Appendicitis Post-op Diagnosis Same Procedure Performed Laparoscopic appendectomy Surgeon Franc Berumen MD [employer] Supervisor Fredrick POLANCO Anesthesia General and Local Indications Spoke patient started having crampy abdominal pain in the mid abdomen yesterday. The pain moved to the right lower quadrant and was more severe today. She came to the emergency room and was noted to have right lower quadrant tenderness with guarding. Her white count was elevated to 12,000. CT scan showed a 13 mm diameter appendix with appendicolith and associated inflammatory changes consistent with acute appendicitis. Patient tested positive for COVID-19 this morning. She is taken to surgery now for laparoscopic appendectomy. Findings Acute appendicitis no evidence of perforation or abscess Description of Procedure Patient was taken to surgery and induced into general anesthesia. The abdomen is prepped and draped. Trocars were placed in the usual fashion using [employer] optical trocars and a 5 mm camera. Patient was placed in Trendelenburg with the right-side elevated. The appendix was found relatively easily. It was very distended and hyperemic. The mesoappendix was also very thickened and had obvious acute inflammatory changes. I exposed the mesoappendix near the base of the appendix and started dissecting here. I divided the mesoappendix primarily using the cautery. The appendiceal artery was thoroughly cauterized and divided. I continued the dissection and eventually skeletonized the base of the appendix. A Vicryl endoloop was then used to ligate the appendix at its base. I then divided the appendix just above the ligature. I cauterized the mucosa of the appendiceal stump. The appendix was placed immediately in an Endo-Catch bag and was retrieved without difficulty through the 10 11 left lower quadrant trocar. I replaced the left lower quadrant trocar and we reviewed the areas of dissection. Any residual blood or debris were removed. There was no evidence of bleeding or other problems associated with the appendiceal dissection or ligation. We then evacuated CO2 and removed the trocar sleeves. Skin wounds were closed with subcuticular 4-0 Monocryl skin suture. The wounds were dressed with Exofin surgical adhesive. The patient was awakened and taken to recovery in good condition. Sponge needle counts were correct x2. Estimated Blood Loss -5 Drains No Packing No Pathology Yes (Appendix) Complications No immediate complications Condition Stable Disposition PACU [facility] Billing Surgery - Charge Forward: Surgery Billing (Laparoscopic appendectomy)
[2023-05-02] MEDS: LACTATED RINGERS 1,000 ML 30 ML IV CONT ×2 (18:53)
[2023-05-02] MEDS: oxyCODONE HCL (*CRX) 5 MG TAB IR PO (19:39)
[2023-05-02] MEDS: ONDANSETRON INJ 4 MG/2 ML VIAL IV PUSH (19:40)
== END 2023-05-02 19:54 | disposition home or self-care (01) ==
LOC: ANHED 14:41 → ANHSURGERY 18:23
PROVIDERS: Emergency Provider Emergency Medicine; Visit Provider Surgery
PROC: 0DTJ4ZZ Resection of Appendix, Percutaneous Endoscopic Approach (ICD-10-PCS; CPT 44970; principal; 2023-05-02 17:00)
DX: K35.30 Acute appendicitis with localized peritonitis, without perforation or gangrene (principal); E66.9 Obesity, unspecified; Z68.32 Body mass index [BMI] 32.0-32.9, adult; Z79.899 Other long term (current) drug therapy; Z80.9 Family history of malignant neoplasm, unspecified
CPT/HCPCS: 44970; 36415; 74177; 80053; 81001; 81025; 83690; 85025; 87086; 87088; 88304; 96361; 96365; 96367; 96375; 99285; A9270; J0330; J0696; J1100; J1836; J2270; J2405; J2704; J3010; J7030; J7120; Q9967

== ENCOUNTER 2023-10-02 07:54 | Outpatient (CLI) | payer OTHER, SELFPAY ==
--- NOTE | ~2023-10-02 | US_ITS ---
US abdomen limited INDICATION: Liver disease PROCEDURE: Realtime right upper abdominal ultrasound. COMPARISON: No prior studies for comparison. FINDINGS: The pancreas is normal without focal mass or pancreatic ductal dilation. Liver echotexture is increased, consistent with fatty infiltration. There is normal directional flow in the portal ve in. The gallbladder is normal without stones, gallbladder wall thickening or pericholecystic fluid. Comm on bile duct measures 4 mm. No sonographic Mendiola's sign. IMPRESSION: 1: Fatty infiltration of the liver. Reviewed, dictated and finalized at location B.
== END 2023-10-02 07:55 | disposition home or self-care (01) ==
LOC: ANHIMG 07:54
PROVIDERS: Visit Provider Emergency Medicine
DX: K76.9 Liver disease, unspecified (principal)
CPT/HCPCS: 76705